=== PATIENT | female | born 1960 | race Caucasian/White ===

== ENCOUNTER 2021-01-28 11:43 | Outpatient (CLI) | payer OTHER | END 2021-01-28 11:44 | disposition home or self-care (01) | LOC: RAD 11:43 | PROVIDERS: ATTEND Internal Medicine | DX: Z02.71 Encounter for disability determination (principal); M47.812 Spondylosis without myelopathy or radiculopathy, cervical region | CPT/HCPCS: 72040 ==

== ENCOUNTER 2024-03-02 09:12 | Observation (INO) | payer OTHER, MEDICAID ==
[2024-03-02] MEDS ORDERED: Ondansetron PF 4 MG/2 ML Vial ONE (09:49)
[2024-03-02 10:56] LABS: Bacteria/HPF 4+ HPF (None Seen); Bilirubin Negative (Negative); Blood, Urine 1+ (Negative); CAUTI Indications for Culture Acute Hematuria; Ketone, Urine Negative (Negative); Leukocyte 75 Leu/uL (Negative); Protein, Urine (Dipstick) 30 mg/dL (Neg-Trace); RBC/HPF 0-3 HPF (0-3); Specific Gravity, Urine 1.011 (1.002-1.036); WBC/HPF 21-50 HPF (0-3); pH, Urine 5.5 (5.0-9.0)
[2024-03-02 10:57] LABS: Clarity Slightly Cloudy (Clear)
[2024-03-02 10:58] LABS: Nitrite Unable to Interpret (Negative)
[2024-03-02 11:01] LABS: Glucose, Urine (Dipstick) 100 mg/dL (Negative)
[2024-03-02 11:02] LABS: Urobilinogen UNABLE TO INTERPRET mg/dL (Less than 2)
[2024-03-02 11:04] LABS: Urine Culture Reflex Yes Yes
[2024-03-02 11:06] LABS: ALT (SGPT) 22 U/L (8-55); AST (SGOT) 26 U/L (5-34); Alkaline Phosphatase 84 U/L (40-110); Anion Gap 16 mmol/L (10-20); BUN (Urea Nitrogen) 17 mg/dL (9.8-20.1); Calc. Creatinine Clearance 0 mL/min (70-130); Calcium 8.3 mg/dL (7.8-10.44); Carbon Dioxide 20 mmol/L (23-31); Chloride 100 mmol/L (98-107); Estimated GFR 51; Globulin 3.7 g/dL (2.4-3.5); Glucose 262 mg/dL (80-115); Potassium 3.7 mmol/L (3.5-5.1); Protein, Total 6.7 g/dL (5.8-8.1); Sodium 132 mmol/L (136-145)
[2024-03-02 11:36] LABS: Troponin I Less than 0.010 ng/mL (< 0.028)
[2024-03-02] MEDS ORDERED: Midazolam HCl 2 mg/2 ml Vial ONE (12:03)
[2024-03-02 12:13] LABS: #Basophils Less than 0.03 10x3/uL (0.0-0.2); #Eosinphils Less than 0.03 10x3/uL (0.0-0.7); %Basophils 0.2 % (0.0-1.0); %Eosinophils 0.2 % (0.0-10.0); %Lymphocytes 32.4 % (21.0-51.0); %Monocytes 10.1 % (0.0-10.0); %Neutrophils 56.4 % (42.0-75.0); Hematocrit 36.4 % (36.0-47.0); Hemoglobin 12.2 g/dL (12.0-16.0); Mean Corpuscular HGB CONC 33.5 g/dL (32.0-36.0); Mean Corpuscular Hemoglobin 28.8 pg (27.0-31.0); Mean Corpuscular Volume 85.8 fL (78.0-98.0); Mean Platelet Volume 10.1 fL (7.4-10.4); Platelet Count 156 10x3/uL (130-400); RBC Distribution Width 12.1 % (11.5-14.5); Red Blood Cell (RBC) Count 4.24 mill/uL (4.20-5.40)
[2024-03-02] MEDS ORDERED: Sodium Chloride 0.9% 100 ML ONE (12:33)
[2024-03-02] MEDS ORDERED: Cefepime 1 GM VIAL ONE (12:33)
[2024-03-02] MEDS ORDERED: cefTRIAXone (ROCEPHIN) 1 GM VIAL ONE (12:37)
[2024-03-02] MEDS ORDERED: Glucagon 1 MG/ML KIT IM PRN (13:11)
[2024-03-02] MEDS ORDERED: Dextrose 50% Abboject 50 ML SYRINGE SLOW IVP PRN (13:11)
[2024-03-02] MEDS ORDERED: Dextrose 5% in Water 1,000 ML IV PRN (13:11)
[2024-03-02] MEDS ORDERED: Insulin Lispro 100 UNIT/ML 10 ML VIAL SC PRN (13:25)
[2024-03-02] MEDS ORDERED: Ondansetron PF 4 MG/2 ML Vial IVP PRN (14:26)
[2024-03-02] MEDS: Sodium Chloride 0.9% 1,000 ML IV SCH (15:03)
[2024-03-02] MEDS ORDERED: Iopamidol-370 76% 500 ML MDV (1 ML CHARGE) ONE (15:34)
[2024-03-02] MEDS: Lactated Ringer's 1,000 ML IV SCH (18:36)
[2024-03-02] MEDS: Gabapentin 100 MG CAP PO SCH (21:06)
[2024-03-02] MEDS: Rosuvastatin 20 MG TAB PO SCH (21:06)
[2024-03-02] MEDS: Acetaminophen 325 MG TAB PO PRN (21:07)
[2024-03-02] MEDS: Ondansetron ODT 4 MG TAB PO PRN (21:21)
[2024-03-03] MEDS ORDERED: cefTRIAXone\\ROCEPHIN 1 GM in Sodium Chloride 0.9% 100 ML IVPB SCH ×2 (01:00→13:00)
[2024-03-03 02:52] LABS: Bacteria/HPF None Seen HPF (None Seen); Bilirubin Negative (Negative); Blood, Urine Negative (Negative); CAUTI Indications for Culture Fever or rigors; Clarity Clear (Clear); Glucose, Urine (Dipstick) Normal (Negative); Ketone, Urine Negative (Negative); Leukocyte Negative Leu/uL (Negative); Nitrite Negative (Negative); Protein, Urine (Dipstick) Negative (Neg-Trace); RBC/HPF 0-3 HPF (0-3); Squamous Epithelial 0-3 HPF (0-3); Urine Culture Reflex No No; Urobilinogen Normal mg/dL (Less than 2); WBC/HPF 0-3 HPF (0-3); pH, Urine 5.5 (5.0-9.0)
[2024-03-03] MEDS: Levothyroxine Sodium 25 MCG TAB PO SCH (05:43)
[2024-03-03] MEDS: Acetaminophen 650 MG/20.3 ML UDCUP PO PRN (06:02)
[2024-03-03 07:02] LABS: Anion Gap 14 mmol/L (10-20); BUN (Urea Nitrogen) 14 mg/dL (9.8-20.1); Calc. Creatinine Clearance 0 mL/min (70-130); Calcium 7.9 mg/dL (7.8-10.44); Carbon Dioxide 24 mmol/L (23-31); Chloride 103 mmol/L (98-107); Estimated GFR 79; Glucose 160 mg/dL (80-115); Potassium 3.5 mmol/L (3.5-5.1); Sodium 137 mmol/L (136-145)
[2024-03-03 07:22] LABS: #Basophils Less than 0.03 10x3/uL (0.0-0.2); %Basophils 0.3 % (0.0-1.0); %Eosinophils 0.8 % (0.0-10.0); %Lymphocytes 42.3 % (21.0-51.0); %Monocytes 11.1 % (0.0-10.0); Hematocrit 36.4 % (36.0-47.0); Mean Corpuscular Volume 84.8 fL (78.0-98.0); Mean Platelet Volume 10.4 fL (7.4-10.4); Platelet Count 169 10x3/uL (130-400); RBC Distribution Width 12.5 % (11.5-14.5); Red Blood Cell (RBC) Count 4.29 mill/uL (4.20-5.40)
[2024-03-03] MEDS: Enoxaparin 40 MG (0.4 mL) SYRINGE SC SCH (10:00)
[2024-03-03] MEDS: Insulin Glargine 30 UNITS/0.3 ML VIAL SC SCH (10:00)
[2024-03-03] MEDS: Insulin Lispro 100 UNIT/ML 10 ML VIAL SC PRN (13:47)
[2024-03-03] MEDS: Sodium Chloride 0.65% Nasal 44 ML BOT EA NARE PRN (13:51)
[2024-03-03 17:09] VITALS: BP 110/66; TEMP 97.8
== END 2024-03-03 16:45 | disposition home or self-care (01) ==
LOC: ERS 09:12 → T4-B 13:21
PROVIDERS: ADMIT Family Medicine; ATTEND Family Medicine
DX: E86.0 Dehydration (principal); N17.9 Acute kidney failure, unspecified; E11.9 Type 2 diabetes mellitus without complications; J45.909 Unspecified asthma, uncomplicated; G47.33 Obstructive sleep apnea (adult) (pediatric); E78.5 Hyperlipidemia, unspecified; K58.9 Irritable bowel syndrome, unspecified; F41.9 Anxiety disorder, unspecified; E11.65 Type 2 diabetes mellitus with hyperglycemia; Z79.4 Long term (current) use of insulin; Z79.899 Other long term (current) drug therapy; Z98.84 Bariatric surgery status; Z88.5 Allergy status to narcotic agent
CPT/HCPCS: 71046; 71275; 80048; 81001 ×2; 82550; 82962 ×2; 83605; 83880; 84145; 84484; 85025; 87040; 87086; 93005; 96361; 96365; 96372; 96375; 99285; G0378 ×3; J0696; J1650; J1815; J2250; J2405; J3490; J7050; J7120 ×2; Q0162 ×2; Q9967; 36415; 36416; 80053; 84443; J0692

== ENCOUNTER 2024-05-24 10:21 | Outpatient (CLI) | payer OTHER, MEDICAID ==
[2024-05-24 14:04] LABS: #Basophils 0.04 10x3/uL (0.0-0.2); %Basophils 0.5 % (0.0-1.0); %Eosinophils 2.1 % (0.0-10.0); %Lymphocytes 32.4 % (21.0-51.0); %Monocytes 6.4 % (0.0-10.0); %Neutrophils 58.1 % (42.0-75.0); Hematocrit 39.2 % (36.0-47.0); Hemoglobin 12.8 g/dL (12.0-16.0); Mean Corpuscular HGB CONC 32.7 g/dL (32.0-36.0); Mean Corpuscular Hemoglobin 29.3 pg (27.0-31.0); Mean Corpuscular Volume 89.7 fL (78.0-98.0); Mean Platelet Volume 10.2 fL (7.4-10.4); Platelet Count 297 10x3/uL (130-400); Red Blood Cell (RBC) Count 4.37 mill/uL (4.20-5.40)
[2024-05-24 14:28] LABS: ALT (SGPT) 13 U/L (8-55); AST (SGOT) 17 U/L (5-34); Albumin 3.5 g/dL (3.4-4.8); Alkaline Phosphatase 84 U/L (40-110); Anion Gap 14 mmol/L (10-20); BUN (Urea Nitrogen) 14 mg/dL (9.8-20.1); Bilirubin, Total 0.9 mg/dL (0.2-1.2); Calc. Creatinine Clearance 0 mL/min (70-130); Carbon Dioxide 27 mmol/L (23-31); Chloride 104 mmol/L (98-107); Estimated GFR 66; Globulin 3.9 g/dL (2.4-3.5); Glucose 103 mg/dL (80-115); Potassium 4.1 mmol/L (3.5-5.1); Protein, Total 7.4 g/dL (5.8-8.1); Sodium 141 mmol/L (136-145)
== END 2024-05-24 10:22 | disposition home or self-care (01) ==
LOC: LABBT 10:21
PROVIDERS: ATTEND Surgery
DX: Z01.818 Encounter for other preprocedural examination (principal); K59.09 Other constipation
CPT/HCPCS: 80053; 85025; 93005; 93010

== ENCOUNTER 2024-05-31 11:10 | Day surgery (SDC) | payer OTHER, MEDICAID ==
[2024-05-24 10:50] VITALS: BMI 43.6
[2024-05-31] MEDS ORDERED: EPINEPHrine 1 MG/ML VIAL ONE (13:26)
[2024-05-31] MEDS ORDERED: Bupivacaine 0.25% HCL 30 ML VIAL ONE (13:26)
[2024-05-31] MEDS ORDERED: CEFAZOLIN 2 GM VIAL ONE (13:54)
[2024-05-31] MEDS ORDERED: Sodium Chloride 0.9% 100 ML ONE (13:55)
[2024-05-31] MEDS ORDERED: Ondansetron PF 4 MG/2 ML Vial ONE ×2 (13:56→16:20)
[2024-05-31] MEDS ORDERED: Midazolam HCl 2 mg/2 ml Vial ONE (13:56)
[2024-05-31] MEDS ORDERED: PROPOFOL 20 ML ONE (13:56)
[2024-05-31] MEDS ORDERED: Lidocaine 1% PF 5 ML VIAL ONE (13:56)
[2024-05-31] MEDS ORDERED: Rocuronium Bromide 10 MG/ML (10ML VIAL) ONE (13:56)
[2024-05-31] MEDS ORDERED: SUGAMMADEX SODIUM 200 MG/2 ML VIAL ONE (13:57)
[2024-05-31] MEDS ORDERED: fentaNYL PF 100 MCG/2 ML SYRINGE ONE (14:02)
[2024-05-31] MEDS ORDERED: PHENYLEPHRINE-NS 100 MCG/ML 10 ML SYRINGE ONE (14:24)
[2024-05-31] MEDS ORDERED: HYDROcodone/Acetaminophen 5/325 mg Tablet ONE (17:06)
== END 2024-05-31 17:28 | disposition home or self-care (01) ==
LOC: SDC 11:10
PROVIDERS: ATTEND Surgery
PROC: 0DP64CZ Removal of Extraluminal Device from Stomach, Percutaneous Endoscopic Approach (ICD-10-PCS; principal; 2024-05-31)
DX: K95.09 Other complications of gastric band procedure (principal); E11.9 Type 2 diabetes mellitus without complications; D64.9 Anemia, unspecified; M19.90 Unspecified osteoarthritis, unspecified site; F32.A Depression, unspecified; G43.909 Migraine, unspecified, not intractable, without status migrainosus; Z88.5 Allergy status to narcotic agent; Z79.899 Other long term (current) drug therapy
CPT/HCPCS: 43774; J0171; J0665; J2250; J2405; J2704; 36416

== ENCOUNTER 2025-04-23 13:00 | Outpatient (CLI) | payer OTHER, MEDICAID | END 2025-04-23 13:01 | disposition home or self-care (01) | PROVIDERS: ATTEND Family Medicine | DX: Z74.09 Other reduced mobility (principal) ==